=== PATIENT | male | born 1955 | race Caucasian/White ===

== ENCOUNTER 2017-08-03 11:16 | Day surgery (SDC) | payer OTHER, SELFPAY ==
[~2017-08-03] VITALS: Ht 162.6 cm; Wt 83.1 kg
[~2017-08-03 11:16] MED LIST: CYCL10 PO; ERYT.5TO RIGHTEYE; HYDACE5 PO; Hydrochlorothia25 MG PO; IBUP800 PO; OXYACE5T PO; Prinivil5 MG PO; TRAM50 PO
[2017-08-03] MEDS ORDERED: AMLO5 (12:35)
[2017-08-03] MEDS ORDERED: LOSA50 (12:36)
[2018-04-28] MEDS ORDERED: LOSARTAN-HCTZ1 EAC1 PO (15:02)
[2018-04-28] MEDS ORDERED: AMLO10 PO (15:02)
[2018-04-28] MEDS ORDERED: OMEPRAZOLE20 MG PO (15:03)
[2018-06-20] MEDS ORDERED: Omeprazole20 M1 PO (12:29)
== END 2017-08-03 14:28 | disposition home or self-care (01) ==
LOC: ORSCSDS 11:16
PROVIDERS: Internal Medicine Gastroenterology
PROC: 0DBH8ZX Excision of Cecum, Via Natural or Artificial Opening Endoscopic, Diagnostic (ICD-10-PCS; principal; 2017-08-03 13:30)
PROC: 0DBM8ZX Excision of Descending Colon, Via Natural or Artificial Opening Endoscopic, Diagnostic (ICD-10-PCS; principal; 2017-08-03 13:30)
DX: K62.5 Hemorrhage of anus and rectum (principal); D12.4 Benign neoplasm of descending colon; D12.0 Benign neoplasm of cecum; K64.8 Other hemorrhoids; I10 Essential (primary) hypertension; Z79.899 Other long term (current) drug therapy
CPT/HCPCS: 88305; J7120

== ENCOUNTER 2018-06-30 07:37 | Day surgery (SDC) | payer OTHER ==
[~2018-06-30] VITALS: Ht 170.2 cm; Wt 87.9 kg
[~2018-06-30 07:37] MED LIST changes: +AMLO10 PO; +AMLO5; +LOSA50; +LOSARTAN-HCTZ1 EAC1 PO; +OMEPRAZOLE20 MG PO; +Omeprazole20 M1 PO
--- NOTE | 2018-06-30 08:07 | NUR ---
06/30/18 [id number] Elizabeth Goldberg 1 IV MISS IN RH BY HIRO VALVE 1 GOOD IV IN RW BY HIRO PT TOW
== END 2018-06-30 10:04 | disposition home or self-care (01) ==
LOC: ORSCSDS 07:37
PROVIDERS: Internal Medicine Gastroenterology
PROC: 0DB68ZX Excision of Stomach, Via Natural or Artificial Opening Endoscopic, Diagnostic (ICD-10-PCS; principal; 2018-06-30 09:00)
PROC: 0DB58ZX Excision of Esophagus, Via Natural or Artificial Opening Endoscopic, Diagnostic (ICD-10-PCS; principal; 2018-06-30 09:00)
DX: K21.9 Gastro-esophageal reflux disease without esophagitis (principal); B19.20 Unspecified viral hepatitis C without hepatic coma; I10 Essential (primary) hypertension; Z87.891 Personal history of nicotine dependence; Z79.899 Other long term (current) drug therapy
CPT/HCPCS: 88305; 88312; 88342; J0330; J1980; J2405; J7120

== ENCOUNTER → 2021-12-20 | Outpatient (CLI) | payer OTHER ==
[2021-12-21 10:58] LABS: Stool Occult Bld Immuno 1 Negative (NEGATIVE)
== END ==
LOC: LAB SHORT 15:33
PROVIDERS: Nurse Practitioner Family
DX: Z12.11 Encounter for screening for malignant neoplasm of colon (principal)
CPT/HCPCS: G0328

== ENCOUNTER → 2022-08-10 | Outpatient (CLI) | payer OTHER ==
[2022-08-10 18:54] LABS: Protein, Urine Quantitative 7.3 mg/dL (0.0-11.9)
[2022-08-10 18:59] LABS: Microalbumin, Urine Quant. <5.000 mg/L (0.000-20.000)
== END | disposition home or self-care (01) ==
LOC: LAB SHORT 12:25 → LAB FUT 07-27 14:50 → EDSTATUS 07-27 14:50
PROVIDERS: Internal Medicine Nephrology
DX: N18.2 Chronic kidney disease, stage 2 (mild) (principal); D63.1 Anemia in chronic kidney disease; N25.81 Secondary hyperparathyroidism of renal origin; E55.9 Vitamin D deficiency, unspecified; E29.1 Testicular hypofunction; R76.9 Abnormal immunological finding in serum, unspecified; R94.5 Abnormal results of liver function studies; R94.6 Abnormal results of thyroid function studies
CPT/HCPCS: 81050; 82043; 82570; 84156

== ENCOUNTER → 2022-12-12 | Outpatient (CLI) | payer OTHER | END | disposition home or self-care (01) | LOC: LAB 13:15 → LAB SHORT 13:15 | DX: R50.9 Fever, unspecified (principal) | CPT/HCPCS: 87086 ==

== ENCOUNTER → 2023-08-29 | Outpatient (CLI) | payer OTHER ==
[2023-09-02 06:07] LABS: CORTISOL,U FREE - RATIO TO CRT 7.61 ug/g CRT; CORTISOL,URINE FREE - PER 24H 12.7 ug/d (<=60.0); CORTISOL,URN FREE - PER VOLUME 4.72 ug/L; CREATININE,URINE - PER 24H 1674 mg/d (800-2100); CREATININE,URINE - PER VOLUME 62 mg/dL; HOURS COLLECTED 24 hr; TOTAL VOLUME 2700 mL
== END ==
LOC: LAB SHORT 18:30 → LAB FUT 01-01 11:55 → EDSTATUS 01-01 11:55
PROVIDERS: Physician Assistant
DX: N18.30 Chronic kidney disease, stage 3 unspecified (principal); D63.1 Anemia in chronic kidney disease; N25.81 Secondary hyperparathyroidism of renal origin; E55.9 Vitamin D deficiency, unspecified; E78.00 Pure hypercholesterolemia, unspecified; R76.9 Abnormal immunological finding in serum, unspecified; R94.5 Abnormal results of liver function studies; R94.6 Abnormal results of thyroid function studies
CPT/HCPCS: 81050; 82530